=== PATIENT | male | born 1970 | race African-American/Black ===

== ENCOUNTER 2023-04-10 15:33 | Inpatient (IN) | payer OTHER ==
[2023-04-10 16:00] VITALS: BMI 22.4
[2023-04-10] MEDS ORDERED: guaiFENesin 600 MG TABLET.ER (FP) PO PRN (16:33)
[2023-04-10] MEDS ORDERED: BENZONATATE 200 MG CAPSULE PO PRN (16:33)
[2023-04-10] MEDS ORDERED: LOPERAMIDE HCL 2 MG CAPSULE PO PRN (16:33)
[2023-04-10] MEDS ORDERED: ONDANSETRON *ODT* 4 MG TABLET SL PRN (16:33)
[2023-04-10] MEDS ORDERED: BISMUTH SUBSALICYLATE 524 MG/30 ML PO PRN (16:33)
[2023-04-10] MEDS ORDERED: IBUPROFEN 400 MG TABLET (FP) PO PRN (16:33)
[2023-04-10] MEDS ORDERED: MAG HYDROX/AL HYDROX/SIMETH 30 ML UNIT-DOSE CUP PO PRN (16:33)
[2023-04-10] MEDS ORDERED: DICYCLOMINE HCL 10 MG CAPSULE PO PRN (16:33)
[2023-04-10] MEDS ORDERED: NALOXONE HCL (KLOXXADO) 8 MG SPRAY NS PRN (16:33)
[2023-04-10] MEDS ORDERED: NALOXONE HCL 0.4 MG/ML VIAL IM PRN (16:33)
[2023-04-10] MEDS ORDERED: BENZOCAINE/MENTHOL (CHLORASEPTIC ) LOZENGE MM PRN (16:33)
[2023-04-10] MEDS ORDERED: POLYETHYLENE GLYCOL (HEALTHYLAX) 3350 17 GM PACKET PO PRN (16:33)
[2023-04-10] MEDS ORDERED: ACETAMINOPHEN 325 MG TABLET (FP) PO PRN (16:33)
[2023-04-10] MEDS ORDERED: IBUPROFEN 600 MG TABLET (FP) PO PRN (16:33)
[2023-04-10] MEDS ORDERED: cloNIDine HCL 0.1 MG TABLET PO PRN (16:33)
[2023-04-10] MEDS ORDERED: MAGNESIUM HYDROX 2400MG/30ML ORAL SUSPENSION 30 ML CUP PO PRN (16:33)
[2023-04-10] MEDS ORDERED: methaDONE HCL 10 MG TABLET (FOR DETOX USE ONLY) ONE (17:22)
[2023-04-10] MEDS ORDERED: methaDONE HCL 10 MG TABLET (FOR DETOX USE ONLY) PO ONE (17:30)
[2023-04-10] MEDS: THIAMINE HCL 100 MG TABLET (FP) PO SCH (22:30)
[2023-04-10] MEDS: MELATONIN 5 MG TABLETS PO SCH (22:30)
[2023-04-11] MEDS: METHOCARBAMOL 500 MG TABLET PO PRN ×2 (10:13→17:23)
[2023-04-11] MEDS: hydrOXYzine PAMOATE 25 MG CAPSULE (FP) PO PRN (10:13)
[2023-04-11] MEDS: PRENATAL VITAMINS W/ FOLIC ACID TABLET (FP) PO SCH (10:13)
[2023-04-11 11:52] LABS: POTASSIUM 3.8 mmol/L (3.5-5.1)
[2023-04-11 11:54] LABS: HEMATOCRIT 40.6 % (35.4-49); HEMOGLOBIN 13.4 GM/dL (11.7-16.9); MCH 34.6 pg (25.7-33.7); MEAN CELL VOLUME 104.9 fl (80-96); MEAN PLT VOLUME 8.7 fl (7.5-11.1); PLATELET COUNT 320 10^3/uL (134-434); RBC 3.87 M/mm3 (4.00-5.60); RDW 13.8 % (11.9-15.9); WHITE BLOOD COUNT 6.4 K/mm3 (4.0-10.0)
[2023-04-11 11:57] LABS: ALBUMIN 2.7 g/dl (3.4-5.0); BLOOD UREA NITROGEN 12.5 mg/dL (7-18)
[2023-04-11 12:01] LABS: BILIRUBIN,TOTAL 1.2 mg/dL (0.2-1); TOT PROT 6.2 g/dl (6.4-8.2)
[2023-04-11] MEDS: MELATONIN 5 MG TABLETS PO SCH (23:00)
[2023-04-11] MEDS: THIAMINE HCL 100 MG TABLET (FP) PO SCH (23:00)
[2023-04-12] MEDS ORDERED: methaDONE HCL 10 MG TABLET (FOR DETOX USE ONLY) PO ONE (10:00)
[2023-04-12] MEDS: PRENATAL VITAMINS W/ FOLIC ACID TABLET (FP) PO SCH (10:28)
[2023-04-12] MEDS: THIAMINE HCL 100 MG TABLET (FP) PO SCH (22:23)
[2023-04-12] MEDS: MELATONIN 5 MG TABLETS PO SCH (22:23)
[2023-04-12] MEDS: METHOCARBAMOL 500 MG TABLET PO PRN (22:25)
[2023-04-13] MEDS: PRENATAL VITAMINS W/ FOLIC ACID TABLET (FP) PO SCH (10:06)
[2023-04-13] MEDS: METHOCARBAMOL 500 MG TABLET PO PRN (22:12)
[2023-04-13] MEDS: MELATONIN 5 MG TABLETS PO SCH (22:12)
[2023-04-13] MEDS: hydrOXYzine PAMOATE 25 MG CAPSULE (FP) PO PRN (22:12)
[2023-04-13] MEDS: THIAMINE HCL 100 MG TABLET (FP) PO SCH (22:12)
[2023-04-14] MEDS: PRENATAL VITAMINS W/ FOLIC ACID TABLET (FP) PO SCH (09:55)
[2023-04-14] MEDS: METHOCARBAMOL 500 MG TABLET PO PRN ×2 (09:56→22:04)
[2023-04-14] MEDS ORDERED: methaDONE HCL 10 MG TABLET (FOR DETOX USE ONLY) PO ONE (10:00)
[2023-04-14 21:13] VITALS: RESP 16
[2023-04-14] MEDS: THIAMINE HCL 100 MG TABLET (FP) PO SCH (22:03)
[2023-04-14] MEDS: MELATONIN 5 MG TABLETS PO SCH (22:03)
[2023-04-15 08:36] VITALS: BP 123/71; PULSE 88; TEMP 98.1
[2023-04-15] MEDS: PRENATAL VITAMINS W/ FOLIC ACID TABLET (FP) PO SCH (10:00)
== END 2023-04-15 10:54 | disposition other institution (70) | DRG 773 ==
LOC: YASAS 15:33 → Y3N 17:35
PROVIDERS: ADMIT Allergy & Immunology; ATTEND Surgery
PROC: HZ2ZZZZ Detoxification Services for Substance Abuse Treatment (ICD-10-PCS; principal; 2023-04-10)
DX: F11.23 Opioid dependence with withdrawal (principal); F17.210 Nicotine dependence, cigarettes, uncomplicated; F41.9 Anxiety disorder, unspecified; M54.50 Low back pain, unspecified; G89.29 Other chronic pain; Z59.01 Sheltered homelessness
CPT/HCPCS: 36415; 80053; 85027; 86780; 87635